=== PATIENT | male | born 1990 | race Caucasian/White ===

== ENCOUNTER 2022-04-05 17:25 | Emergency (ER) | payer OTHER ==
[~2022-04-05] VITALS: Ht 182.9 cm; Wt 94.4 kg
[2022-04-05 18:17] VITALS: BP 121/77
== END 2022-04-05 23:41 | disposition left against medical advice (07) ==
LOC: ER 17:25
DX: L02.415 Cutaneous abscess of right lower limb (principal); Z53.21 Procedure and treatment not carried out due to patient leaving prior to being seen by health care provider